=== PATIENT | male | born 1980 | race Caucasian/White ===

== ENCOUNTER 2017-03-31 15:50 | Emergency (ER) | payer BC ==
[2017-03-31] MEDS ORDERED: Ketorolac 60 MG/2 ML SDV IM ONE (16:12)
--- NOTE | 2017-03-31 16:16 | EDM.PDOC ---
ED HPI GENERAL MEDICAL PROBLEM - General Chief Complaint: Upper Extremity Injury/Pain Stated Complaint: LEFT ELBOW PAIN WITH FLUID Time Seen by Provider: 03/31/17 16:05 - History of Present Illness INITIAL COMMENTS - FREE TEXT/NARRATIVE: HISTORY AND PHYSICAL: History of present illness: The patient is a 36-year-old male who has been loosely following in our clinic for evaluation of his blood pressure and presents with complaints of left elbow pain and swelling. The patient states that he works as a [employer] and does a lot of lifting and pulling and uses his upper extremities a lot in his work. He states that 3 weeks ago he was pulling a piece of equipment which gave way and he impacted his left elbow. It was painful at the time with some swelling but he did not seek evaluation. 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 Patient is right-hand dominant and has no neurovascular changes in his extremity. He denies any other injuries or joint swellings. He was not evaluated for the trauma when it initially happened. He has been using [id number] ibuprofen and Tylenol for pain and last used ibuprofen yesterday Tylenol this morning . He denies systemic complaints Review of systems: As per history of present illness and below otherwise all systems reviewed and negative. Past medical history: As per history of present illness and as reviewed below otherwise noncontributory. Surgical history: As per history of present illness and as reviewed below otherwise noncontributory. Social history: No reported history of drug or alcohol abuse. Family history: As per history of present illness and as reviewed below otherwise noncontributory. Physical exam: General: Well-developed well-nourished male who is nontoxic and speaks clearly in the ED HEENT: Atraumatic, normocephalic, negative for conjunctival pallor or scleral icterus, mucous membranes moist, throat clear, neck supple, nontender, trachea midline. Lungs: Clear to auscultation, breath sounds equal bilaterally, chest nontender. Heart: S1S2, regular, negative for clicks, rubs, or JVD. Abdomen: Soft, nondistended, nontender. NABS Genitourinary: Deferred. Rectal: Deferred. Extremities: Atraumatic appearing with very localized olecranon bursa swelling but there is no tenseness to the area and it is mobile and not grossly enlarged and it is not red or warm, there is no joint effusion, there is tenderness at palpation of the olecranon and the radial head without bony deformities. All compartments are soft but there is some discomfort with palpation of the triceps muscle distally as well as his forearm. Neurovascular is intact distally and all of the joints are without swelling tenderness or deformities, negative for cords or calf pain. Neurovascular unremarkable. Neuro: Awake, alert, oriented. Cranial nerves II through XII unremarkable. Cerebellum unremarkable. Motor and sensory unremarkable throughout. Exam nonfocal. Diagnostics: X-ray left elbow Therapeutics: Toradol, sling Patient was offered a note for work to restrict duties but would like to continue doing work and I recommended that he ice and use the sling once he gets home and use [id number] pain medications while working and the tramadol I prescribed when at home I also advised follow-up with orthopedics Impression: Olecranon bursitis, subacute trauma left elbow Definitive disposition and diagnosis as appropriate pending reevaluation and review of above. left elbow Pain Score (Numeric/FACES): 3 - Related Data Allergies Allergy/AdvReac Type Severity Reaction Status Date / Time No Known Allergies Allergy Verified 03/31/17 16:00 Home Meds: Home Meds . [No Known Home Meds] 03/21/16 [History] Past Medical History - Past Health History Medical/Surgical History: Denies Medical/Surgical History Cardiovascular History: Reports: Hypertension - Infectious Disease History Infectious Disease History: Reports: Chicken Pox, Influenza Social & Family History - Family History Family Medical History: Noncontributory - Tobacco Use Smoking Status *Q: Never Smoker - Caffeine Use Caffeine Use: Reports: Coffee Caffeine Use Comment: 1 cup daily - Alcohol Use Days Per Week of Alcohol Use: 2 Number of Drinks Per Day: 12 Total Drinks Per Week: 24 - Recreational Drug Use Recreational Drug Use: No Review of Systems - Review of Systems Review Of Systems: ROS reveals no pertinent complaints other than HPI. ED EXAM, GENERAL - Physical Exam Exam: See Below (See dictation) Course - Vital Signs Last Recorded V/S: Last Vital Signs Temp 36.4 C 03/31/17 16:01 Pulse 92 03/31/17 16:01 Resp 18 03/31/17 16:01 BP 168/108 H 03/31/17 16:01 Pulse Ox 96 03/31/17 16:01 - Orders/Labs/Meds Orders: Active Orders 24 hr Category Date Time Status Elbow Min 3V Lt [CR] Stat Exams 03/31/17 16:12 Taken DME for Discharge [COMM] Stat Oth 03/31/17 17:08 Ordered Meds: Medications Discontinued Medications Generic Name Dose Route Start Last Admin Trade Name Wilmer PRN Reason Stop Dose Admin Ketorolac Tromethamine 60 mg 03/31/17 16:12 03/31/17 16:21 Toradol IM 03/31/17 16:13 60 mg ONETIME ONE Administration Departure - Departure Time of Disposition: 17:14 Disposition: Home, Self-Care 01 Condition: Good Clinical Impression: Olecranon bursitis of left elbow, Left elbow pain - Discharge Information Forms: ED Department Discharge Additional Instructions: The following information is given to patients seen in the emergency department who are being discharged to home. This information is to outline your options for follow-up care. We provide all patients seen in our emergency department with a follow-up referral. The need for follow-up, as well as the timing and circumstances, are variable depending upon the specifics of your emergency department visit. If you don't have a primary care physician on staff, we will provide you with a referral. We always advise you to contact your personal physician following an emergency department visit to inform them of the circumstance of the visit and for follow-up with them and/or the need for any referrals to a consulting specialist. The emergency department will also refer you to a specialist when appropriate. This referral assures that you have the opportunity for followup care with a specialist. All of these measure are taken in an effort to provide you with optimal care, which includes your followup. Under all circumstances we always encourage you to contact your private physician who remains a resource for coordinating your care. When calling for followup care, please make the office aware that this follow-up is from your recent emergency room visit. If for any reason you are refused follow-up, please contact the [facility] emergency department at and ask to speak to the emergency department charge nurse. [facility] Primary care- Internal Medicine and Family [place] [phone] [facility] Specialty Care--Orthopedic clinic Professional Building [address] [place] [address] [address] [place] [address] Please use [id number] medications for pain when at work and during the day and use stronger medications, tramadol, when at home. Please call and follow -up with her orthopedics physician as we discussed and ice and elevate the area after activities. Return to ER as needed and as discussed. - My Orders Last 24 Hours: My Active Orders 03/31/17 16:12 Elbow Min 3V Lt [CR] Stat 03/31/17 17:08 DME for Discharge [COMM] Stat - Assessment/Plan Last 24 Hours: My Active Orders 03/31/17 16:12 Elbow Min 3V Lt [CR] Stat 03/31/17 17:08 DME for Discharge [COMM] Stat
[2017-03-31 17:34] VITALS: BP 143/100
--- NOTE | 2017-04-01 10:21 | CR ---
EXAM DATE: 03/31/17 PATIENT'S AGE: 36 Patient: ALAINA GONZALEZ Facility: [place], [place] Site . Site : [id number] Study: XRay Extremity elbow [id number]/13/2017 4:44:17 PM Ordering Physician: Nirmala Pendleton Final Report: Indication: Trauma Technique: Three views of the left elbow Comparison: None available Findings: Bones: Alignment is normal. No fractures or bone lesions. Joint spaces: Unremarkable. Soft tissues: Soft tissue swelling posterior to the olecranon. A tiny calcification adjacent to the olecranon could represent a small fragmented enthesophyte. Impression: No acute fracture or dislocation. Soft tissue swelling posterior to the olecranon. Dictated by Abundio Kidd MD @ 03/31/2017 5:05:25 PM Dictated by: Abundio Kidd MD @ 03/31/2017 17:05:52 (Electronic Signature) Report Signed by Proxy. CUONG
== END 2017-03-31 17:26 | disposition home or self-care (01) ==
LOC: MW.ED 15:50
DX: M70.22 Olecranon bursitis, left elbow (principal); X50.0XXA Overexertion from strenuous movement or load, initial encounter; Y93.89 Activity, other specified; Y92.69 Other specified industrial and construction area as the place of occurrence of the external cause; Y99.0 Civilian activity done for income or pay
CPT/HCPCS: 73080; 96372; 99283; A4566; J1885

== ENCOUNTER 2022-02-23 10:40 | Emergency (ER) | payer BC ==
[2022-02-23 12:05] VITALS: BP 148/91; PULSE 75
== END 2022-02-23 12:05 | disposition home or self-care (01) ==
LOC: MW.ED 10:40
DX: M25.511 Pain in right shoulder (principal); I10 Essential (primary) hypertension; Z79.899 Other long term (current) drug therapy
CPT/HCPCS: 73030-26-RT; 73030-RT; 99283; 99283-25

== ENCOUNTER 2022-04-09 07:02 | Day surgery (SDC) | payer BC ==
[~2022-04-09 07:02] MED LIST: Lactated Ringers 1,000 ML IV SCH
[2022-04-09] MEDS ORDERED: Dexmedetomidine 200 MCG/2 ML SDV ONE (07:13)
[2022-04-09] MEDS ORDERED: Midazolam 1 MG/ML 2 ML SDV ONE (07:13)
[2022-04-09] MEDS ORDERED: fentaNYL 100 MCG/2 ML SDV ONE (07:13)
[2022-04-09] MEDS ORDERED: Propofol 200 MG/20 ML SDV ONE (07:13)
[2022-04-09] MEDS ORDERED: Water For Injection, Sterile 20 ML ONE (07:14)
[2022-04-09] MEDS ORDERED: Rocuronium 100 MG/10 ML MDV ONE (07:14)
[2022-04-09] MEDS ORDERED: Lidocaine 2% 5 ML SDV ONE (07:21)
[2022-04-09] MEDS ORDERED: Ropivacaine 0.5% 5 MG/ML 30 ML SDV ONE (07:34)
[2022-04-09] MEDS ORDERED: HYDROmorphone 1 MG/ML Syringe IVPUSH PRN (07:45)
[2022-04-09] MEDS ORDERED: Ondansetron 4 MG/2 ML SDV IVPUSH PRN (07:45)
[2022-04-09] MEDS ORDERED: Naloxone 0.4 MG/ML SDV IVPUSH PRN (07:45)
[2022-04-09] MEDS ORDERED: Albuterol 0.083% 2.5 MG/3 ML Neb Soln NEB PRN (07:45)
[2022-04-09] MEDS ORDERED: Metoclopramide 10 MG/2 ML SDV IVPUSH PRN (07:45)
[2022-04-09] MEDS ORDERED: fentaNYL 50 MCG/ML SDV IVPUSH PRN (07:45)
[2022-04-09] MEDS ORDERED: EPINEPHrine 1 MG/1 ML Amp ONE ×2 (07:51→09:25)
[2022-04-09] MEDS ORDERED: Bupivacaine 0.25%/EPINEPHrine 1:200,000 10 ML SDV ONE (07:51)
[2022-04-09] MEDS ORDERED: ceFAZolin 2 GM in Premix Bag 1 BAG IV SCH (08:00)
[2022-04-09] MEDS ORDERED: Ketorolac 30 MG/ML SDV ONE (09:23)
[2022-04-09] MEDS ORDERED: Ondansetron 4 MG/2 ML SDV ONE (09:23)
[2022-04-09] MEDS ORDERED: Sugammadex Sodium 200 MG/2 ML VIAL ONE (09:23)
[2022-04-09] MEDS ORDERED: Octyl 2-Cyanoacrylate 1 Tube ONE ×2 (09:48→09:55)
[2022-04-09 11:52] VITALS: BP 139/88; PULSE 62
== END 2022-04-09 12:00 | disposition home or self-care (01) ==
LOC: MW.SDS 07:02
PROVIDERS: ATTEND Orthopaedic Surgery
DX: M75.121 Complete rotator cuff tear or rupture of right shoulder, not specified as traumatic (principal); G47.30 Sleep apnea, unspecified; I10 Essential (primary) hypertension; E78.00 Pure hypercholesterolemia, unspecified; K21.9 Gastro-esophageal reflux disease without esophagitis; E66.9 Obesity, unspecified; Z68.30 Body mass index [BMI] 30.0-30.9, adult; Z87.891 Personal history of nicotine dependence; Z79.899 Other long term (current) drug therapy
CPT/HCPCS: A9270-GY; J0131; J0171; J0690; J1885; J2250; J2370; J2405; J2704; J2795; J3010; J3490; J7120